=== PATIENT | male | born 1975 | race Caucasian/White ===

== ENCOUNTER 2018-06-19 07:52 | Emergency (ER) | payer OTHER ==
[~2018-06-19] VITALS: Ht 172.7 cm; Wt 100.4 kg
[2018-06-19 07:58] VITALS: Ht 172.7 cm; Wt 100.4 kg
[2018-06-19 09:29] VITALS: BP 113/62
== END 2018-06-19 09:29 | disposition home or self-care (01) ==
LOC: ED 07:52
DX: J11.1 Influenza due to unidentified influenza virus with other respiratory manifestations (principal); M54.9 Dorsalgia, unspecified; Z85.47 Personal history of malignant neoplasm of testis
CPT/HCPCS: J1885

== ENCOUNTER 2018-12-16 16:47 | Emergency (ER) | payer BC, OTHER ==
[~2018-12-16] VITALS: Ht 175.3 cm; Wt 102.6 kg
[2018-12-16 16:54] VITALS: Ht 175.3 cm; Wt 102.6 kg
[2018-12-16 18:00] VITALS: BP 152/94
== END 2018-12-16 18:00 | disposition home or self-care (01) ==
LOC: ED 16:47
DX: K62.89 Other specified diseases of anus and rectum (principal)
CPT/HCPCS: 82962

== ENCOUNTER 2018-12-18 07:49 | Inpatient (IN) | payer BC, OTHER ==
[~2018-12-18] VITALS: Ht 175.3 cm; Wt 101.2 kg
[2018-12-18 07:54] VITALS: Ht 175.3 cm; Wt 101.2 kg
--- NOTE | 2018-12-18 08:04 | NUR ---
PT BIB FAMILY C/C RECTAL PAIN X 5 DAYS STS WAS HERE X 2 DAYS AGO STS WAS BETTER BUT NOW HAVING SMALL AMOUNT OF JELLY STOOL DR JUSTICE AT BEDSIDE TO [place]
--- NOTE | 2018-12-18 08:10 | NUR ---
SCANNER OPERATOR DR JUSTICE WITH PELVIC EXAM
--- NOTE | 2018-12-18 08:25 | NUR ---
ROCK DUSTER AT BEDSIDE FOR BLOOD DRAW
[2018-12-18 08:42] LABS: PLATELET COUNT 257 x10^3mcL (130-400); RED CELL DISTRIBUTION WIDTH 12.9 % (11.5-14.5)
[2018-12-18 08:45] LABS: UA SPECIFIC GRAVITY 1.025 (1.005-1.035); microscopic required? YES; urine erythrocyte TRACE (NEGATIVE)
[2018-12-18 08:52] LABS: AMPHETAMINE QUAL UR NONE DETECTED (See below)
[2018-12-18 09:05] LABS: ALBUMIN 3.4 g/dL (3.4-5.0); ALKALINE PHOSPHATASE 99 U/L (46-116); ALT/SGPT 25 U/L (16-63); AST/SGOT 15 U/L (15-37); BILIRUBIN TOTAL 0.56 mg/dL (0.20-1.00); CALCIUM 8.3 mg/dL (8.5-10.1); CARBON DIOXIDE 26.3 mmol/L (21-32); CHLORIDE SERUM 106 mmol/L (98-107); CREATININE SERUM 1.3 mg/dL (0.7-1.3); GFR1 > 60 mL/min; GLUCOSE SERUM 119 mg/dL (74-106); LIPASE 102 IU/L (73-393); POTASSIUM SERUM 4.3 mmol/L (3.5-5.1); SODIUM SERUM 141 mmol/L (136-145)
--- NOTE | 2018-12-18 09:22 | NUR ---
BACK FROM CT
[2018-12-18] MEDS ORDERED: NOR10T PO (10:38)
[2018-12-18] MEDS ORDERED: ZANAFLEX4 MG PO (10:38)
[2018-12-18] MEDS ORDERED: CIPRO500 MG PO (10:40)
[2018-12-18] MEDS ORDERED: FLA500 PO (10:41)
[2018-12-18] MEDS ORDERED: MOT600 PO (10:41)
[2018-12-18] MEDS ORDERED: [UNRECOGNIZED DRUG - OTHER] (10:44)
--- NOTE | 2018-12-18 11:06 | NUR ---
PLEASE ENTER FULL NAMES OF UTILITY WORKER FORGE/RN Patient data collected by (UTILITY WORKER FORGE):Jaime ENRIQUE UTILITY WORKER FORGE Assessment reviewed and completed by (RN): Ricardo WICK RN
--- NOTE | 2018-12-18 11:27 | NUR ---
DR FALL AT BEDSIDE TO GO OVER PLAN OF CARE
--- NOTE | 2018-12-18 11:47 | NUR ---
PT STATES DRAINING MORE POST EXAM BY DR. FALL. PT GIVEN PADS & DISPOSABLE UNDERWEAR.
--- NOTE | 2018-12-18 11:55 | NUR ---
REPORT CALLED TO JAMEE ON MED-SURG.
--- NOTE | 2018-12-18 12:00 | NUR ---
LT AC IV DC'ED PER PT REQUEST (DISCOMFORT). PAIN DOWN TO 03/17.
--- NOTE | 2018-12-18 12:15 | NUR ---
RECEIVED REPORT FROM ER NURSE. PT BROUGHT UP WITH TRANSPORTER VIA WHEEL CHAIR. PT AWAKE AND ALERT IN NO APARENT DISTRESS AT THIS TIME. DENIES CHEST PAIN OR PRESSURE. PT BREATHING UNLABORED CHEST RISE EQUALLY. IV SALINE LOCK ON LAC PATENT AND INTACT NO REDNESS OR SWELLING NOTED. ALL QUESTIONS AND CONCERNS ANSWERED. BED IN LOW POSITION CALL LIGHT WITHIN REACH. WILL CONTINUE TO MONITOR.
[2018-12-18 12:17] VITALS: BP 150/96
[2018-12-18 12:59] LABS: PHOSPHOROUS 3.7 mg/dL (2.5-4.9)
[2018-12-18 13:01] LABS: CHOLESTEROL/HDL RATIO 5.8
--- NOTE | 2018-12-18 13:47 | NUR ---
PT ON SITZ BATH. TOLERATING WELL.
--- NOTE | 2018-12-18 15:54 | NUR ---
PT LYING IN BED ASLEEP . FIANCEE AT BEDSIED. ALL NEEDS ATTENDED TO. CALL LIGHT WITHIN REACH. WILL CONTINUE TO MONITOR.
[2018-12-18 17:08] VITALS: BP 137/99
--- NOTE | 2018-12-18 17:45 | NUR ---
PT C/O RECTAL DISCOMFORT 08/15. ADMINISTERED NORCO PER MAY. NO ADVERSE AFFECTS NOTED. ALL NEEDS ATTENDED TO. CALL LIGHT WITHIN REACH WILL CONTINUE TO MONITOR.
--- NOTE | 2018-12-18 18:23 | NUR ---
PT REPORTS SCANT AMOUNT OF BRIGHT RED BLOOD WHEN WIPING RECTUM. WILL PAGE ASSISTANT AT SURGERY DR AND WILL REPORT TO ASSISTANT AT SURGERY NURSE.
--- NOTE | 2018-12-18 18:28 | NUR ---
DR. ABEBE MADE AWARE OF BLOOD WHEN WIPING RECTUM. NO FURTHER ORDERS AT THIS TIME.
--- NOTE | 2018-12-18 19:05 | NUR ---
REPORT RECEIVED FROM DAY SHIFT RN. PATIENT WAS SEEN AND IS RESTING COMFORTABLY IN BED. NO DISTRESS NOTED. BREATHING EVEN AND UNLABORED ON ROOM AIR. NO DISTRESS NOTED. SPEECH CLEAR. ANSWER QUESTIONS APPROPIATELY. A.OX4. AT BEDSIDE. NO C/O PAIN. DENIES CHEST PAIN. MED SURG PATIENT. IV TO LFA INFILTRATED. REMOVED BY DAY SHIFT RN. CATHETER INTACT. WILL INSERT NEW IV. REPORTS LAST BM TO BE ON Wednesday12/15/18 AND STATES ITS WAS SMALL PEBBLE STOOLS, SOFT AND NOT HARD. REPORTS RECTAL BLEED. SCANT AMOUNTS OF LIGHT RED (SEROSANGEIOUS BLOOD) ON TISSUE. COMFORT AND SAFETY MEASURES IN PLACE. BED IS LOCKED AND IN THE LOWEST POSITION. SIDE RAILS UP X2. CALL LIGHT IS WITHIN REACH. WILL CONTINUE TO MONITOR.
--- NOTE | 2018-12-18 19:15 | NUR ---
IN TO DO IV. PATIENT IN BATHROOM PERPARING TO DO SITZ BATH. WILL COME BACK LATER TO INSERT IV PER PATIENT'S REQUEST.
--- NOTE | 2018-12-18 20:20 | NUR ---
ATTEMPTED TO INSERT NEW IV X3 WITHOUT SUCCESS. PATIENT TOLERATED WELL. WILL GIVEN PATIENT A BREAK AND REINSERT IV LATER. NO DISTRESS NOTED. SAFETY MEASURSE IN PLACE. CALL LIGHT IS WITHIN REACH. WILL CONTINUE TO MONITOR.
[2018-12-18 20:30] VITALS: BP 144/98
--- NOTE | 2018-12-18 21:20 | NUR ---
NEW IV PLACED TO RFA, 22G, BY ROSALINA ABAD. FLUSHES WELL. PATENT AND INTACT. NO REDNESS OR SWELLING NOTED. TOLERATED WELL. SAFETY MEASURES IN PLACE. CALL LIGHT IS WITHIN REACH.
--- NOTE | 2018-12-19 01:35 | NUR ---
RESTING IN BED. AWAKE. NO DISTRESS NOTED. BREATHING EVEN AND UNLABORED. NO SOB OR RESP DISTRESS NOTED. DENIES PAIN. SAFETY MEASURES IN PLACE. CALL LIGHT IS WITHIN REACH. WILL CONTINUE TO MONITOR.
[2018-12-19 04:31] VITALS: BP 127/89
--- NOTE | 2018-12-19 06:00 | NUR ---
C/O 6/10 RECTAL DISCOMFORT. REQUESTING PAIN MED. PRN NORCO GIVEN PRESCRIBED. NO DISTRESS NOTED. RESTED IN INTERVALS THROUGHOUT THE NIGHT. NO ACUTE CHANGES NOTED. BREATHING EVEN AND UNLABORED ON ROOM AIR. NO SOB. IVF INFUSING WELL. STILL REPORTS SCAN RECTAL BLEED. STATES PAIN IS RESOLVED, AND NOW ONLY FEELS DISCOMFORT. SITZ BATH PERFORMED THROUGHOUT THE NIGHT. REPORTS CHANGED PAD X3 WITH SCAN AMOUNT OF LIGHT RED BLOOD EACH TIME. SAFETY MEASURES IN PLACE. CALL LIGHT IS WITHIN REACH. WILL ENDORSE CARE TO DAY SHIFT RN
[2018-12-19 06:18] LABS: BASOPHIL % 0.2 % (0-2); PLATELET COUNT 241 x10^3mcL (130-400); RED CELL DISTRIBUTION WIDTH 12.8 % (11.5-14.5)
[2018-12-19 06:38] LABS: CARBON DIOXIDE 28.5 mmol/L (21-32); CHLORIDE SERUM 104 mmol/L (98-107); CREATININE SERUM 1.3 mg/dL (0.7-1.3); GFR1 > 60 mL/min; GLUCOSE SERUM 104 mg/dL (74-106); MAGNESIUM 2.3 mg/dL (1.8-2.4); POTASSIUM SERUM 3.9 mmol/L (3.5-5.1); SODIUM SERUM 141 mmol/L (136-145)
[2018-12-19 08:21] VITALS: BP 143/99
[2018-12-19] MEDS ORDERED: CIPRO500 MG PO (10:16)
[2018-12-19 10:46] VITALS: BP 143/99
--- NOTE | 2018-12-19 12:06 | NUR ---
1100: PATIENT SIGNED DC PAPERWORK AT THE BEDSIDE, COMFIRMED CORRECT PHARMACY TO SEND MEDICATION. IV DC'D FROM RIGHT FOREARM WITH CATH INTACT, SITE DRESSED WITH COBAN AND GAUZE, PATIENT TOLERATED WELL. TAKING TO EXIT BY ESTHETICIAN SPA, ID BANDS TAKING OFF.
== END 2018-12-19 11:00 | disposition home or self-care (01) | DRG 395 ==
LOC: ED 07:49 → MU 10:30
PROVIDERS: Emergency Medicine; ADMIT Family Medicine
DX: K61.1 Rectal abscess (principal); E66.9 Obesity, unspecified; C62.91 Malignant neoplasm of right testis, unspecified whether descended or undescended; Z72.89 Other problems related to lifestyle; Z68.33 Body mass index [BMI] 33.0-33.9, adult
CPT/HCPCS: G0378; J1885; J2543; J3490; J7030; Q9967

== ENCOUNTER 2018-12-21 07:22 | Emergency (ER) | payer BC, OTHER ==
[~2018-12-21] VITALS: Ht 175.3 cm; Wt 100.2 kg
[~2018-12-21 07:22] MED LIST: CIPRO500 MG PO; FLA500 PO; MOT600 PO; NOR10T PO; ZANAFLEX4 MG PO; [UNRECOGNIZED DRUG - OTHER]
[2018-12-21 07:29] VITALS: Ht 175.3 cm; Wt 100.2 kg
[2018-12-21 08:29] VITALS: BP 118/78
== END 2018-12-21 08:29 | disposition home or self-care (01) ==
LOC: ED 07:22
DX: K59.00 Constipation, unspecified (principal); Z90.79 Acquired absence of other genital organ(s); Z98.890 Other specified postprocedural states